=== PATIENT | male | born 1950 | race Caucasian/White ===

== ENCOUNTER 2021-08-13 13:38 | Emergency (ER) | payer MEDICARE, BC ==
[~2021-08-13] VITALS: Ht 172.7 cm; Wt 90.7 kg
[2021-08-13 15:06] VITALS: BP 140/79
[2021-08-13] MEDS ORDERED: CEPH500C PO (15:18)
== END 2021-08-13 15:37 | disposition home or self-care (01) ==
LOC: ER 13:38
DX: S61.432A Puncture wound without foreign body of left hand, initial encounter (principal); I10 Essential (primary) hypertension; W26.8XXA Contact with other sharp object(s), not elsewhere classified, initial encounter; Y93.89 Activity, other specified; Y92.89 Other specified places as the place of occurrence of the external cause; Y99.8 Other external cause status